=== PATIENT | male | born 1970 | race Caucasian/White ===

== ENCOUNTER 2017-08-05 16:05 | Inpatient (IN) | payer MEDICAID ==
[~2017-08-05] VITALS: Ht 165.1 cm; Wt 76.4 kg
[2017-08-05 17:25] LABS: BASOPHIL % 0.6 % (0-2); PLATELET COUNT 146 x10^3mcL (130-400); RED CELL DISTRIBUTION WIDTH 13.9 % (11.5-14.5)
[2017-08-05 17:28] LABS: CALCIUM 8.3 mg/dL (8.5-10.1); CARBON DIOXIDE 26.6 mmol/L (21-32); CHLORIDE SERUM 107 mmol/L (98-107); CREATININE SERUM 0.7 mg/dL (0.7-1.3); GFR1 > 60 mL/min; GLUCOSE SERUM 188 mg/dL (74-106); SODIUM SERUM 144 mmol/L (136-145)
[2017-08-05 17:32] LABS: AMPHETAMINE QUAL UR NONE DETECTED (NEG <=1000)
[2017-08-05 17:32] LABS: ALBUMIN 3.8 g/dL (3.4-5.0); ALKALINE PHOSPHATASE 82 U/L (46-116); ALT/SGPT 27 U/L (16-63); AST/SGOT 12 U/L (15-37); TOTAL PROTEIN, SERUM 7.2 g/dL (6.4-8.2)
[2017-08-05] MEDS ORDERED: MAGNESIUM OXID400 MG PO (19:07)
[2017-08-05] MEDS ORDERED: PROTONIX40 MG PO (19:07)
[2017-08-05] MEDS ORDERED: CLOPIDOGREL75 M1 PO (19:08)
[2017-08-05] MEDS ORDERED: ATORVASTATIN CA40 M1 PO (19:08)
[2017-08-05] MEDS ORDERED: METFORMIN HCL850 MG PO (19:08)
[2017-08-05] MEDS ORDERED: CARVEDILOL3.125 M1 PO (19:08)
[2017-08-05] MEDS ORDERED: BRILINTA90 M1 PO (19:09)
[2017-08-05 19:41] LABS: PHOSPHOROUS 2.9 mg/dL (2.5-4.9)
[2017-08-05 19:42] LABS: CHOLESTEROL/HDL RATIO 3.5
[2017-08-05 19:51] VITALS: BP 172/95
[2017-08-05 19:51] LABS: T3 TOTAL 1.24 ng/mL
[2017-08-05 19:52] LABS: FREE T4 1.02 ng/dL (0.76-1.46); FREE THYROXINE INDEX 2.8 ug/dL (1.4-4.5); T4(THYROXINE) 8.1 ug/dL (4.7-13.3)
[2017-08-05 19:58] VITALS: Ht 165.1 cm; Wt 76.4 kg
[2017-08-05] MEDS ORDERED: ASPIR 8181 MG PO (20:45)
[2017-08-05] MEDS ORDERED: LOSARTAN POTASS25 M1 PO (20:45)
[2017-08-05 21:07] VITALS: BP 156/79
[2017-08-06 05:34] VITALS: BP 135/81
[2017-08-06 06:42] LABS: BASOPHIL % 0.5 % (0-2); PLATELET COUNT 131 x10^3mcL (130-400); RED CELL DISTRIBUTION WIDTH 13.8 % (11.5-14.5)
[2017-08-06 07:05] LABS: CALCIUM 7.8 mg/dL (8.5-10.1); CARBON DIOXIDE 25.1 mmol/L (21-32); CHLORIDE SERUM 111 mmol/L (98-107); CREATININE SERUM 0.5 mg/dL (0.7-1.3); GFR1 > 60 mL/min; GLUCOSE SERUM 127 mg/dL (74-106); MAGNESIUM 2.1 mg/dL (1.8-2.4); POTASSIUM SERUM 3.9 mmol/L (3.5-5.1); SODIUM SERUM 144 mmol/L (136-145)
[2017-08-06 08:46] VITALS: BP 155/78
[2017-08-06 14:49] VITALS: BP 151/69
[2017-08-06 16:11] VITALS: BP 151/69
== END 2017-08-06 17:05 | disposition home or self-care (01) | DRG 243 ==
LOC: ED 16:05 → DU 18:52
PROVIDERS: Emergency Medicine; Family Medicine
DX: K21.9 Gastro-esophageal reflux disease without esophagitis (principal); E11.65 Type 2 diabetes mellitus with hyperglycemia; I10 Essential (primary) hypertension; I25.2 Old myocardial infarction; E78.00 Pure hypercholesterolemia, unspecified; Z83.3 Family history of diabetes mellitus; Z82.49 Family history of ischemic heart disease and other diseases of the circulatory system; E78.2 Mixed hyperlipidemia; E66.9 Obesity, unspecified; Z68.29 Body mass index [BMI] 29.0-29.9, adult
CPT/HCPCS: 82962; 83880; 84439; J3490; J7030; Q0092

== ENCOUNTER 2017-10-14 20:14 | Emergency (ER) | payer MEDICAID ==
[~2017-10-14] VITALS: Ht 165.1 cm; Wt 74.8 kg
[~2017-10-14 20:14] MED LIST: ASPIR 8181 MG PO; ATORVASTATIN CA40 M1 PO; BRILINTA90 M1 PO; CARVEDILOL3.125 M1 PO; CLOPIDOGREL75 M1 PO; LOSARTAN POTASS25 M1 PO; MAGNESIUM OXID400 MG PO; METFORMIN HCL850 MG PO; PROTONIX40 MG PO
[2017-10-14 22:22] VITALS: Ht 165.1 cm; Wt 74.8 kg
[2017-10-14 23:05] VITALS: BP 140/77
== END 2017-10-14 23:05 | disposition home or self-care (01) ==
LOC: ED 20:14
DX: H60.91 Unspecified otitis externa, right ear (principal); I10 Essential (primary) hypertension; E11.9 Type 2 diabetes mellitus without complications; E78.00 Pure hypercholesterolemia, unspecified

== ENCOUNTER 2019-01-25 17:26 | Emergency (ER) | payer MEDICAID ==
[2019-01-25 17:50] LABS: BASOPHIL % 0.4 % (0-2); PLATELET COUNT 156 x10^3mcL (130-400)
[2019-01-25 17:58] LABS: CALCIUM 8.5 mg/dL (8.5-10.1); CHLORIDE SERUM 106 mmol/L (98-107); CREATININE SERUM 0.6 mg/dL (0.7-1.3); GFR1 > 60 mL/min; GLUCOSE SERUM 163 mg/dL (74-106); POTASSIUM SERUM 3.8 mmol/L (3.5-5.1); SODIUM SERUM 140 mmol/L (136-145)
[2019-01-25 18:03] LABS: ALBUMIN 3.8 g/dL (3.4-5.0); ALKALINE PHOSPHATASE 94 U/L (46-116); ALT/SGPT 24 U/L (16-63); AST/SGOT 8 U/L (15-37); BILIRUBIN TOTAL 0.28 mg/dL (0.20-1.00); LIPASE 94 IU/L (73-393); TOTAL PROTEIN, SERUM 7.6 g/dL (6.4-8.2)
[2019-01-25 20:46] VITALS: BP 159/89
== END 2019-01-25 20:46 | disposition home or self-care (01) ==
LOC: ED 17:26
PROVIDERS: Emergency Medicine
DX: R10.12 Left upper quadrant pain (principal); M54.6 Pain in thoracic spine; I10 Essential (primary) hypertension; E11.9 Type 2 diabetes mellitus without complications; E78.00 Pure hypercholesterolemia, unspecified
CPT/HCPCS: 36415; 83880; Q0092; Q9967

== ENCOUNTER 2019-04-19 18:46 | Emergency (ER) | payer MEDICAID ==
[~2019-04-19] VITALS: Ht 165.1 cm; Wt 74.4 kg
[2019-04-19 18:55] VITALS: Ht 165.1 cm; Wt 74.4 kg
[2019-04-19 19:09] LABS: BASOPHIL % 0.4 % (0-2); PLATELET COUNT 170 x10^3mcL (130-400)
[2019-04-19 19:16] LABS: CALCIUM 8.5 mg/dL (8.5-10.1); CARBON DIOXIDE 28.4 mmol/L (21-32); CHLORIDE SERUM 105 mmol/L (98-107); CREATININE SERUM 0.7 mg/dL (0.7-1.3); GFR1 > 60 mL/min; GLUCOSE SERUM 207 mg/dL (74-106); POTASSIUM SERUM 3.7 mmol/L (3.5-5.1); SODIUM SERUM 142 mmol/L (136-145)
[2019-04-19 19:20] LABS: ALBUMIN 4.1 g/dL (3.4-5.0); ALKALINE PHOSPHATASE 111 U/L (46-116); ALT/SGPT 22 U/L (16-63); AST/SGOT 8 U/L (15-37); BILIRUBIN TOTAL 0.3 mg/dL (0.20-1.00)
[2019-04-19 20:44] VITALS: BP 138/82
== END 2019-04-19 20:35 | disposition home or self-care (01) ==
LOC: ED 18:46
DX: R07.89 Other chest pain (principal); I10 Essential (primary) hypertension; E11.9 Type 2 diabetes mellitus without complications; E78.00 Pure hypercholesterolemia, unspecified
CPT/HCPCS: J1885; J2060